=== PATIENT | male | born 2000 | race Caucasian/White ===

== ENCOUNTER 2023-12-07 09:43 | Emergency (ER) | payer OTHER ==
[~2023-12-07] VITALS: Ht 185.4 cm; Wt 106.8 kg
[2023-12-07] MEDS ORDERED: NS 1,000 ML IV ONE (10:00)
[2023-12-07 10:27] LABS: COLLECTION METHOD CLEAN CATCH
[2023-12-07 10:41] LABS: BASO # 0.1 K/mm3 (0.0-0.2); BASO % 0.4 % (0.0-2.0); EOS % 0.1 % (0.0-4.0); GRAN # 13.5 K/mm3 (1.4-6.5); GRAN % 84.1 % (42.2-75.2); HEMOGLOBIN 15.1 g/dl (13.5-18.0); LYMPH # 1.4 K/mm3 (1.2-3.4); LYMPH % 8.7 % (20.0-51.0); MEAN CELL VOLUME 98 fl (80.0-100.0); MEAN CORPUSCULAR HEMOGLOBIN 34 pg (27-31); MEAN CORPUSCULAR HGB CONC 35 g/dl (33.0-37.0); MEAN PLATELET VOLUME 10.7 fl (7.4-10.4); MONO % 6.4 % (1.7-9.3); PLATELET COUNT 207 K/mm3 (130-400); RED BLOOD COUNT 4.39 M/mm3 (4.20-5.60); REDCELL DISTRIBUTION WIDTH-CV 11.2 % (11.5-14.5)
[2023-12-07 10:53] LABS: URINE APPEARANCE CLEAR (CLEAR/HAZY); URINE BLOOD 2+ (NEGATIVE); URINE COLOR YELLOW (YELLOW); URINE GLUCOSE NEGATIVE (NEGATIVE); URINE KETONE 1+ (NEGATIVE); URINE NITRATE NEGATIVE (NEGATIVE); URINE PROTEIN(semi-quant) 1+ (NEGATIVE)
[2023-12-07] MEDS ORDERED: NS 100 ML IV SCH (11:02)
[2023-12-07] MEDS ORDERED: Iohexol 300 - 100 ML VIAL IV ONE (11:02)
[2023-12-07 11:03] LABS: ALBUMIN 4.1 g/dL (3.5-5.0); C-REACTIVE PROTEIN 1.56 mg/dL (0.00-0.50); CALCIUM 9.4 mg/dL (8.4-10.2); CREATININE, serum 1.02 mg/dL (0.72-1.25); POTASSIUM 3.7 mEq/L (3.5-4.5); TOTAL PROTEIN 7.8 g/dl (6.2-8.1)
[2023-12-07 11:05] LABS: SQUAMOUS EPITHELIAL 0-2 /hpf (0-10)
[2023-12-07 11:06] LABS: MUCOUS PRESENT (NOT PRESENT); URINE BACTERIA RARE /hpf (NONE SEEN)
[2023-12-07] MEDS ORDERED: ZITHROMAX Z PA250 MG PO (12:21)
[2023-12-07] MEDS ORDERED: AMOXICILLIN 8751 TAB PO (12:21)
[2023-12-07 12:31] VITALS: BP 136/68; PULSE 74; TEMP 98.2
[2023-12-08] MEDS ORDERED: NORCO 325 MG-51 TAB PO (12:43)
[2023-12-08] MEDS ORDERED: FLOMAX 0.40.4 MG/CAP PO (12:46)
== END 2023-12-07 12:32 | disposition home or self-care (01) ==
LOC: COL.ER 09:43
PROVIDERS: Emergency Medicine
DX: N13.2 Hydronephrosis with renal and ureteral calculous obstruction (principal); J18.9 Pneumonia, unspecified organism
CPT/HCPCS: J7030; Q9967